=== PATIENT | female | born 1980 | race Caucasian/White ===

== ENCOUNTER 2016-06-04 09:52 | Emergency (ER) | payer MEDICAID ==
[~2016-06-04] VITALS: Ht 157.5 cm; Wt 60.0 kg
[~2016-06-04 09:52] MED LIST: DICY20TA59 PO; HYDR-906 PO; ONDA4TAB14 PO; PREN1TAB31 PO; PREN1TAB49 PO; PRENATAL
[2016-06-04 09:56] VITALS: Ht 157.5 cm; Wt 60.0 kg
[2016-06-04] MEDS ORDERED: ACETAMINOPHEN 500 MG TAB PO STA (10:24)
[2016-06-04] MEDS ORDERED: LIDOCAINE 1% (MDV) 20 ML INJ SC ONE (10:30)
[2016-06-04] MEDS ORDERED: ACET500C5 PO (11:01)
[2016-06-04] MEDS ORDERED: CEPH-443 PO (11:02)
--- NOTE | 2016-06-04 11:16 | ERD ---
ER Documentation Chief Complaint Date/Time DATE: 06/04/16 TIME: 11:03 Chief Complaint Bartholino's cyst? 12 weeks HPI 36-year-old female who is approximately 12 weeks is complaining of left labia pain and swelling. Patient stated that has been going on for a week , with pain is constant and pulsing. She has not taken any medication for pain. She went to her OB office this morning, was told to come to the ER. Denies pelvic pain or cramping. Denies vaginal bleeding. ROS All systems reviewed and are negative except as per history of present illness. Medications Home Meds Active Scripts Cephalexin* (Keflex*) 500 Mg Capsule, 500 MG PO QID for 5 Days, CAP Prov:LUIS NGUYỄN WHEEL FILLER 06/04/16 Acetaminophen* (Tylophen*) 500 Mg Capsule, 1 CAP PO Q6H Y for PAIN AND OR ELEVATED TEMP, #20 CAP Prov:LUIS NGUYỄN. WHEEL FILLER 06/04/16 Dicyclomine Hcl* (Bentyl*) 20 Mg Tablet, 20 MG PO QID, #20 TAB Prov:NEO STRICKLAND NP 01/22/16 Ondansetron (Ondansetron Odt) 4 Mg Tab.rapdis, 4 MG PO Q8 Y for NAUSEA AND/OR VOMITING, #30 TAB Prov:NEO STRICKLAND WHEEL FILLER 01/22/16 Hydrocodone/Acetaminophen ([place] 5-325 Tablet) 1 Each Tablet, 1 TAB PO Q6H Y for PAIN, #20 TAB Prov:NEO STRICKLAND WHEEL FILLER 01/22/16 Reported Medications Vits #90-Iron Fum-FA ( Formula) 1 Each Tablet, 1 EACH PO DAILY for 90 Days 03/17/13 [] No Conflict Check, QDAILY 01/04/11 Vits W-Ca,Fe,Fa(<1MG) () 1 Tab Tablet, 1 TAB PO 01/04/11 Allergies Allergies: Coded Allergies: No Known Allergy (Verified , 01/04/11) PMhx/Soc Medical and Surgical Hx: pt denies Medical Hx, pt denies Surgical Hx History of Surgery: Yes ( section) Anesthesia Reaction: No Hx Neurological Disorder: No Hx Respiratory Disorders: No Hx Cardiac Disorders: No Hx Psychiatric Problems: No Hx Miscellaneous Medical Probl: No Hx Alcohol Use: No Hx Substance Use: No Hx Tobacco Use: No Smoking Status: Never smoker Physical Exam Vitals Vital Signs Date Time Temp Pulse Resp B/P Pulse Ox O2 Delivery O2 Flow Rate FiO2 06/04/16 09:56 98.1 78 18 120/78 99 Physical Exam General impression: Well-developed, well-nourished. Alert, oriented, in no acute distress Head: Normocephalic, atraumatic. Neck: Supple, nontender. No lymphadenopathy. No nuchal rigidity. Respiration: Normal respiratory effort. Lungs clear to auscultate bilaterally. No wheezes, rales or rhonchi. Cardiovascular: Regular rate and rhythm. No murmurs or extra heart sounds. Abdomen: Abdomen normal to inspection. Nontender. No masses or organomegaly. Bowel sounds normal. : Left labia engorged, and fluctuant. Tender. External genitalia otherwise normal in appearance. Neuro: Mental status normal, speech normal. HAT BRIM CURLER grossly intact. Skin: Normal turgor. No rash or lesions. Psych: Normal mood and affect. Results 24 hrs Current Medications Medications (Trade) Dose Ordered Sig/Fiordaliza Route PRN Reason Start Time Stop Time Status Last Admin Dose Admin Acetaminophen (Tylenol Tab) 1,000 mg ONCE STAT PO 06/04/16 10:24 06/04/16 10:25 DC 06/04/16 10:34 Lidocaine (Xylocaine 1% (Mdv) 20 ml) 20 ml ONCE ONCE SC 06/04/16 10:30 06/04/16 10:31 DC 06/04/16 10:34 Procedures/[facility] Procedure note: Incision and Drainage Verbal consent obtained for incision and drainage of patient's abscess. The area was prepped with Betadine. Lidocaine 1% was infiltrated for local anesthesia. After appropriate anesthesia, incision was made using #11 blade. Copious amount of purulent discharge was drained from the abscess. The abscess was probed for loculation. Iodoform 1/4" packing tape was inserted into the abscess. The wound was then cleaned and dressed. Patient tolerated procedure well. Tylenol p.o. given to the patient in the ED for pain. Patient's labia were reduced to normal size after I&D. Keflex will be prescribed for the patient. Patient advised to return to ED in 2 days for wound check and dressing change. Patient appears well, stable for discharge and outpatient management. Medical decision making shared with patient and family. Education provided to patient and family. Patient and family expressed understanding of the plan. Medications on discharge: Tylenol, Keflex. Follow-up: Primary care provider in 2-3 days or return to ED if worse. Departure Diagnosis: Primary Impression: Bartholin's gland abscess Condition: Good Patient Instructions: Bartholin's Cyst (I And D) [facility] Usted se bolanos hecho un examen mdico de control que le indica que no est en viktor condicin que requiera tratamiento urgente en el Departamento de Emergencia. Un estudio ms profundo y el tratamiento de allison condicin pueden esperar sin ningn riesgo hasta que usted sea atendida/o en el consultorio de allison mdico o viktor cl esvin. Es responsabilidad suya arreglar viktor myra para el seguimiento del yvette. MANEJO DE CONDICIONES NO URGENTES EN EL FUTURO 1) Si usted tiene un mdico de atencin primaria: Usted debera llamar a allison mdico de atencin primaria antes de venir al departamento de emergencia. Despus de las horas de consultorio, allison doctor o allison asociado/a est disponible por telfono. El mdico o enfermero de chad en el servicio telefnico puede asesorarle por arlette medio para atender el problema, o yvette contrario se puede programar viktor myra. 2) Si usted no tiene un mdico de atencin primaria: Llame al mdico o clnica de referencia que aparece abajo domo las horas de consultorio para hacer viktor myra para que le vean. CLINICAS: [facility] [phone] [facility] 745 [phone] [facility] 316 [phone] [address] [facility] [phone] [facility] [phone] [address] [facility]. [phone] KAREN DICKSON RECREATIONAL THERAPY TECHNIC[place] [address] [facility] [address] [place] [address] OFFICE FAX , [facility] [address] [place] [address] [address] [facility] [address] [place] [address] DR KEEN, [facility] [address] [facility] [address] [address] [facility] [place] [address] [place] [address] [facility] [address] [place] [address] [address] [facility] [address] - [address] ANNE, MIRELA [address] [place] [address] [place] [address] [facility]. [address], [place] [address] [address] FREY, [place] [address] [place], [place] [id number] Additional Instructions: Regrese a estas instalaciones dentro de DOS NGUYEN para un examen de seguimiento.Regrese antes si allison condicin se empeora. LUIS NGUYỄN NP Jun 04, 2016 11:16
[2016-06-04 11:27] VITALS: BP 118/64; PULSE 78; RESP 18; TEMP 97.8
== END 2016-06-04 11:27 | disposition home or self-care (01) ==
LOC: FTE 09:52
DX: O99.89 Other specified diseases and conditions complicating pregnancy, childbirth and the puerperium (principal); N75.1 Abscess of Bartholin's gland; Z3A.12 12 weeks gestation of pregnancy
CPT/HCPCS: 56420; Z7610

== ENCOUNTER 2016-06-06 09:12 | Emergency (ER) | payer MEDICAID ==
[~2016-06-06] VITALS: Ht 160 cm; Wt 63.5 kg
[~2016-06-06 09:12] MED LIST changes: +ACET500C5 PO; +CEPH-443 PO
[2016-06-06 09:16] VITALS: Ht 160 cm; Wt 63.5 kg
--- NOTE | 2016-06-06 09:32 | ERD ---
ER Documentation Chief Complaint Date/Time DATE: 06/06/16 TIME: 09:26 Chief Complaint S/P I&D FOR RECHECK HPI This is a 36-year-old female presenting to emergency department for recheck after Bartholin gland abscess incision and drainage. Patient was here 2 days ago for incision and drainage and had packing placed. Patient has been taking antibiotic Keflex. Patient has mild pain however states this is tolerable. Patient was told to return to the ED for removal of packing and recheck. Patient is currently 12 weeks . Denies any vaginal bleeding or pelvic cramping. Patient goes to [facility] for [facility] appointments. Patient' s next appointment is in 1 week. ROS All systems reviewed and are negative except as per history of present illness. Medications Home Meds Active Scripts Cephalexin* (Keflex*) 500 Mg Capsule, 500 MG PO QID for 5 Days, CAP Prov:LUIS NGUYỄN. PLANT PATHOLOGIST 06/04/16 Acetaminophen* (Tylophen*) 500 Mg Capsule, 1 CAP PO Q6H Y for PAIN AND OR ELEVATED TEMP, #20 CAP Prov:LUIS NGUYỄN PLANT PATHOLOGIST 06/04/16 Dicyclomine Hcl* (Bentyl*) 20 Mg Tablet, 20 MG PO QID, #20 TAB Prov:NEO STRICKLAND NP 01/22/16 Ondansetron (Ondansetron Odt) 4 Mg Tab.rapdis, 4 MG PO Q8 Y for NAUSEA AND/OR VOMITING, #30 TAB Prov:NEO STRICKLAND NP 01/22/16 Hydrocodone/Acetaminophen ([place] 5-325 Tablet) 1 Each Tablet, 1 TAB PO Q6H Y for PAIN, #20 TAB Prov:NEO STRICKLAND PLANT PATHOLOGIST 01/22/16 Reported Medications Vits #90-Iron Fum-FA ( Formula) 1 Each Tablet, 1 EACH PO DAILY for 90 Days 03/17/13 [] No Conflict Check, QDAILY 01/04/11 Vits W-Ca,Fe,Fa(<1MG) () 1 Tab Tablet, 1 TAB PO 01/04/11 Allergies Allergies: Coded Allergies: No Known Allergy (Verified , 01/04/11) PMhx/Soc History of Surgery: Yes ( section) Anesthesia Reaction: No Hx Neurological Disorder: No Hx Respiratory Disorders: No Hx Cardiac Disorders: No Hx Psychiatric Problems: No Hx Miscellaneous Medical Probl: No Hx Alcohol Use: No Hx Substance Use: No Hx Tobacco Use: No Physical Exam Vitals Vital Signs Date Time Temp Pulse Resp B/P Pulse Ox O2 Delivery O2 Flow Rate FiO2 06/06/16 09:16 98.3 78 18 103/56 98 Physical Exam Const: NAD, alert Head: Atraumatic Eyes: Normal Conjunctiva ENT: Normal External Ears, Nose and Mouth. Neck: Full range of motion..~ No meningismus. Resp: Clear to auscultation bilaterally Cardio: Regular rate and rhythm, no murmurs Abd: Soft, non tender, non distended. Normal bowel sounds Skin: No petechiae or rashes Back: No midline or flank tenderness Ext: No cyanosis, or edema Neur: Awake and alert Psych: Normal Mood and Affect : packing in place to bartholin gland cyst on left side Procedures/MDM MDM: 36 year old female presents to ER for recheck after incision and drainage of Bartholin gland cyst. I/D was done 2 days ago and patient was placed on Keflex. Wound shows no evidence of infection, foreign body, neurologic injury, vascular injury, open joint or tendon laceration. Packing was removed intact. No surrounding erythema, drainage or warmth. No fevers. Patient denies any vaginal bleeding or pelvic cramping. Patient appropriate for outpatient follow up. Patient has appointment with [facility] next week. Instructed patient to follow up with [employer] for follow up. [place] translation used during this encounter. Return to ED for any high fever, chest pain, difficulty breathing, shortness breath, wheezing, vomiting, diarrhea, abdominal pain or any new or worsening symptoms. Patient verbalizes understanding. All questions answered at discharge. Low suspicion for cellulitis, deep space infection, or abscess. Departure Diagnosis: Primary Impression: Encounter for wound re-check Condition: Stable SAMY ROMAN NP Jun 06, 2016 09:32
== END 2016-06-06 10:31 | disposition home or self-care (01) ==
LOC: FTE 09:12
DX: Z48.01 Encounter for change or removal of surgical wound dressing (principal)
CPT/HCPCS: 99281

== ENCOUNTER 2016-12-02 13:30 | Inpatient (IN) | payer MEDICAID ==
[~2016-12-02] VITALS: Ht 167.6 cm; Wt 73.1 kg
[2016-12-02] MEDS ORDERED: LACTATED RINGER'S 1,000 ML IV SCH ×2 (14:30→19:49)
[2016-12-02] MEDS ORDERED: BUTORPHANOL 2 MG INJ IV ONE (14:30)
[2016-12-02 14:58] LABS: BASOPHILS % 0.3 % (0.0-2.0); HEMATOCRIT 39.1 % (37.0-47.0); HEMOGLOBIN 13.2 g/dl (12.0-16.0); LYMPHOCYTES % 20.6 % (15.0-51.0); MEAN CORPUSCULAR HEMOGLOBIN 29.5 pg (29.0-33.0); MEAN CORPUSCULAR HGB CONC 33.8 g/dl (32.0-37.0); MEAN CORPUSCULAR VOLUME 87.5 fl (82.0-101.0); MEAN PLATELET VOLUME 12.5 fl (7.4-10.4); MONOCYTE # 0.6 10^3/ul (0.3-0.9); MONOCYTES % 6.4 % (0.0-11.0); NEUTROPHILS % 72.2 % (39.0-77.0); PLATELET COUNT 122 10^3/UL (140-415); RED BLOOD COUNT 4.47 10^6/ul (4.20-5.40); RED CELL DISTRIBUTION WIDTH 13.3 % (11.5-14.5); WHITE BLOOD COUNT 9.7 10^3/ul (4.8-10.8)
--- NOTE | 2016-12-02 15:09 | RADRPT ---
PROCEDURE: US Abdomen (right upper quadrant). CLINICAL INDICATION: Right upper quadrant abdomen pain. TECHNIQUE: Multiple real-time longitudinal and transverse images of the right upper quadrant of e abdomen were acquired utilizing a curved array transducer. Images were reviewed on a high-resoluti on PACS workstation. COMPARISON: None FINDINGS: The liver is normal in size and normal in echogenicity. There is no focal hepatic lesion. Color Doppler and pulsed Doppler sonography demonstrate normal a ntegrade flow in the portal vein. Multiple gallstones are present in the gallbladder. There is no gallbladder wall thickening or fluid around the gallbladder. The bile ducts are normal with the common bile duct measuring 5.8 mm in diameter. The visualized portions of the pancreas are unremarkable with obscuration of the tail of the pancrea s. No free fluid is present. The right kidney measures 9.5 x 3.5 x 4.4 cm. There is normal echogenicity of the right kidney. T here is no perinephric fluid collection. No hydronephrosis, mass, or calculus is seen. IMPRESSION: 1. Multiple gallstones in the gallbladder. No evidence of cholecystitis. 2. Otherwise normal right upper quadrant abdomen ultrasound. RPTAT: QQ .Hai Dai MD, MD Date Time Electronically viewed and signed by .Hai Dai MD, on 12/02/2016 15:08 .R/
[2016-12-02 15:21] VITALS: Ht 167.6 cm; Wt 73.1 kg
[2016-12-02 15:22] VITALS: BP 119/78; PULSE 65; RESP 18
--- NOTE | 2016-12-02 17:07 | CONS ---
Date/Time of Note Date/Time of Note DATE: 12/02/16 TIME: 17:00 Consultation Date/Type/Reason Admit Date/Time December 02, 2016 OB triage consult This patient is 36 years old 3 para 2 0. With estimated date of confinement of December 17, 2016 which makes her 37 weeks and 6 days . She came to triage due to gallstones for evaluation and treatment of pain On examination her vital signs were fairly stable with blood pressure 119/78 pulse rate 68 respiration 18 and temperature of 96.7. Her abdomen was soft fundus was soft heart tone was normal with good variability and occasional accelerations with no decelerations. No CVA tenderness. However she had slight tenderness of the epigastric area and left upper quadrant of abdomen Laboratory Tests Test 12/02/16 14:40 White Blood Count 9.710^3/ul Red Blood Count 4.4710^6/ul Hemoglobin 13.2g/dl Hematocrit 39.1% Mean Corpuscular Volume 87.5fl Mean Corpuscular Hemoglobin 29.5pg Mean Corpuscular Hemoglobin Concent 33.8g/dl Red Cell Distribution Width 13.3% Platelet Count 52369^3/UL Mean Platelet Volume 12.5fl Neutrophils % 72.2% Lymphocytes % 20.6% Monocytes % 6.4% Eosinophils % 0.0% Basophils % 0.3% Nucleated Red Blood Cells % 0.0/100WBC Neutrophils # 7.010^3/ul Lymphocytes # 2.010^3/ul Monocytes # 0.610^3/ul Eosinophils # 0.010^3/ul Basophils # 0.010^3/ul Nucleated Red Blood Cells # 0.010^3/ul Current Medications Medications (Trade) Dose Ordered Sig/Fiordaliza Route PRN Reason Start Time Stop Time Status Last Admin Dose Admin Lactated Ringer's (Lr) 1,000 ml @ 125 mls/hr Q8H IV 12/02/16 14:30 12/02/16 14:38 125 MLS/HR Butorphanol Tartrate (Stadol) 2 mg ONCE ONCE IV 12/02/16 14:30 12/02/16 14:31 DC 12/02/16 14:41 2 MG Constitutional: No chills, No diaphoresis, No disoriented, No febrile, No improved, No no complaints, No other, No poor po, No requiring IVF, No requiring O2 Eyes: No discharge, No no complaints, No other, No pain, No redness, No visual change ENT: No bleeding, No congestion, No discharge, No dysphagia, No no complaints, No other, No pain, No sore throat Respiratory: No cough, No no complaints, No other, No pain, No pleuritic pain, No shortness of breath, No sputum, No wheezing Cardiovascular: No chest pain, No edema, No lightheadedness, No no complaints, No orthopenea, No other, No palpitations, No paroxysmal nocturnal dyspnea Gastrointestinal: other (Slight epigastric pain no rebound bowel sounds were normal the rest of the abdomen was soft no CVA tenderness), pain (.), No blood, No constipation, No decreased appetite, No diarrhea, No flatus, No nausea, No no complaints, No passing stool, No vomiting Genitourinary: No bleeding, No discharge, No dysuria, No flank pain, No hematuria, No no complaints, No other Musculoskeletal: No back pain, No bone/joint pain, No neck pain, No no complaints, No other, No restricted range of motion, No swelling Skin: No bruising, No erythema, No laceration, No no complaints, No other, No pruritis, No rash, No skin lesions Neurologic: No confusion, No dizziness, No focal-weakness, No headache, No no complaints, No other, No seizure, No syncope Endocrine: No dry skin, No no complaints, No other, No polydypsia, No polyuria , No temp intolerance Additional Comments She was given 2.5 mg of Stadol for pain . Her condition was explained to them regarding gallstone On ultrasound study the cholelithiasis was confirmed and there were no evidence of cholecystitis . Patient was informed of the result of the ultrasound study and was discharged home with instruction to rest at home and if the contractions is more or severe nausea vomiting always can come back to the triage . End of dictation Social History Smoking Status: Never smoker Exam/Review of Systems Vital Signs Vitals Vital Signs Date Time Temp Pulse Resp B/P Pulse Ox O2 Delivery O2 Flow Rate FiO2 12/02/16 15:22 98.7 65 18 119/78 Results Result Diagram: 12/02/16 1440 Results 24 hrs Laboratory Tests Test 12/02/16 14:40 White Blood Count 9.7 # Red Blood Count 4.47 Hemoglobin 13.2 Hematocrit 39.1 Mean Corpuscular Volume 87.5 Mean Corpuscular Hemoglobin 29.5 Mean Corpuscular Hemoglobin Concent 33.8 Red Cell Distribution Width 13.3 Platelet Count 122 L Mean Platelet Volume 12.5 #H Neutrophils % 72.2 Lymphocytes % 20.6 Monocytes % 6.4 Eosinophils % 0.0 Basophils % 0.3 Nucleated Red Blood Cells % 0.0 Neutrophils # 7.0 Lymphocytes # 2.0 Monocytes # 0.6 Eosinophils # 0.0 Basophils # 0.0 Nucleated Red Blood Cells # 0.0 Medications Medications Current Medications Lactated Ringer's (Lr) 1,000 ml @ 125 mls/hr Q8H IV Last administered on t 14:38; Admin Dose 125 MLS/HR; Start 12/02/16 at 14:30 JESSY KEEN MD Dec 02, 2016 17:07
[2016-12-02] MEDS ORDERED: OXYTOCIN 30 UNITS/LR 500 ML IV SCH (20:00)
[2016-12-02] MEDS ORDERED: OXYTOCIN 30 UNITS/LR 500 ML IV PRN (20:00)
[2016-12-02] MEDS ORDERED: MISOPROSTOL 200 MCG TAB PR PRN (20:00)
[2016-12-02] MEDS ORDERED: CARBOPROST 250 MCG INJ IM PRN (20:00)
[2016-12-02] MEDS ORDERED: CEFAZOLIN 2 GM/50 ML (PMX) 50 ML IV SCH (20:00)
[2016-12-02] MEDS ORDERED: METHYLERGONOVINE 0.2 MG INJ IM PRN (20:00)
[2016-12-02] MEDS ORDERED: morphine SULFATE/PF (10 MG/10 ML) INJ ONE (21:03)
[2016-12-02] MEDS ORDERED: PHENYLephrine (100 MCG/ML) 5ML SYG ONE (21:03)
[2016-12-02 21:08] LABS: INR 0.89; PT RATIO 0.9
[2016-12-02 21:25] LABS: PARTIAL THROMBOPLASTIN TIME 27.5 Sec (25.0-35.0)
[2016-12-02] MEDS ORDERED: FENTAnyl 50 MCG/ML VIAL ONE ×2 (21:26→22:15)
[2016-12-02] MEDS ORDERED: KETOROLAC 30 MG INJ IV PRN (23:00)
[2016-12-02] MEDS ORDERED: METOCLOPRAMIDE 10 MG INJ IV PRN (23:00)
[2016-12-02] MEDS ORDERED: HYDROmorphONE 1 MG/ML SYG IV PRN ×2 (23:00)
[2016-12-02] MEDS ORDERED: NALOXONE (0.4 MG/ML) INJ IV PRN (23:00)
[2016-12-02] MEDS ORDERED: DIPHENHYDRAMINE 50 MG INJ IV PRN ×2 (23:00)
[2016-12-02] MEDS ORDERED: MEPERIDINE 25 MG INJ IV PRN (23:00)
[2016-12-02] MEDS ORDERED: HYDROmorphONE (0.2 MG/ML) 10ML SYG IV PRN ×2 (23:00)
[2016-12-02] MEDS ORDERED: FENTAnyl 50 MCG/ML VIAL IV PRN ×2 (23:00)
[2016-12-02] MEDS ORDERED: ONDANSETRON 4 MG INJ IV PRN ×2 (23:00)
[2016-12-02 23:45] VITALS: BP 125/77; PULSE 61; RESP 20
[2016-12-03] VITALS (8 sets, daily range): BP systolic 101–126; BP diastolic 57–78; PULSE 60–66; RESP 18–20
--- NOTE | 2016-12-03 02:15 | HP ---
Date/Time of Note Date/Time of Note DATE: 12/03/16 TIME: 02:00 OB - History Hx of Present Free Text/Dictation 36 y.0 who had x2 previous sections who is known to have gallstones c/o pain on upper abdomen more likely on epigatrium and back pain which was alleviated by stadol,then noticed EFM revealed U,C 2- 4min which continued after IV hydration u/s abdomen showed no evidence of cholecystitis. pain level from U.C > 8/10 patient also desire to have tubal sterilization , prepare repeat section and BTL after informed consent was obtained Chief Complaint: u.c Estimated Due Date: Dec 17, 2016 : 3 Para: 2 Spontaneous : 0 Therapeutic : 0 Ultrasounds: Normal mid trimester US Obstetrical Complications: None Medical Complications: Gastrointestinal Past Family/Social History * Past Medical, Surgical, Family and Obstetric Histories reviewed from chart. Blood Type: B+ Rubella: immune RPR/VDRL: Negative GBS Status: Unknown HBsAG: Negative OB Admission Exam Vital Signs Vital Signs Vital Signs Date Time Temp Pulse Resp B/P Pulse Ox O2 Delivery O2 Flow Rate FiO2 12/03/16 00:45 98.5 60 20 126/75 100 Room Air Physical Exam HEENT: WNL Heart: Rhythm Normal Lungs: Clear, Equal Abdomen: WNL Extremities: Normal Reflexes: Normal Cervical Dilatation: Fingertip Effacement: 50% Station: -3 Membranes: Intact Amniotic Fluid: Unevaluable Heart Rate: 130's Accelerations: Accelerations Present Decelerations: No Decelerations Varibility: Moderate Contractions on Admission: < 5 Minutes Apart Intensity: Moderate Last 72 hours Lab Results CBC & BMP 12/02/16 14:40 OB Assessment/Plan Reason for admission: section, other Other Assessment: [id number] X2 previous section cholelithiasis in early labor Plan: Section, Other (bilateral tubal sterilization) SHAJI HEATH MD Dec 03, 2016 02:10
[2016-12-03] MEDS ORDERED: MISOPROSTOL 200 MCG TAB PR PRN (03:00)
[2016-12-03] MEDS ORDERED: METHYLERGONOVINE 0.2 MG INJ IM PRN (03:00)
[2016-12-03] MEDS ORDERED: LANOLIN 7 GM TUBE TOP PRN (03:00)
[2016-12-03] MEDS ORDERED: DIPHENHYDRAMINE 50 MG INJ IV PRN (03:00)
[2016-12-03] MEDS ORDERED: ONDANSETRON 4 MG INJ IV PRN (03:00)
[2016-12-03] MEDS ORDERED: CARBOPROST 250 MCG INJ IM PRN (03:00)
[2016-12-03] MEDS ORDERED: OXYTOCIN 30 UNITS/LR 500 ML IV PRN (03:00)
[2016-12-03] MEDS: KETOROLAC 30 MG INJ IV PRN ×2 (08:17→16:52)
[2016-12-03] MEDS: SENNA/DOCUSATE NA (8.6MG/50MG) TAB PO SCH ×2 (09:00→21:18)
[2016-12-03] MEDS: LACTATED RINGER'S 1,000 ML IV SCH ×2 (16:18→16:19)
--- NOTE | 2016-12-03 18:21 | OPR ---
Operative Report Planned Procedure Free Text/Dictation x2 previous c/s in laboe ,desire to have tubal sterilization Procedure date Dec 02 Procedure(s) repeat low transverse section and BTL and lysis of adhesion Performed by see signature line Assisting provider: JESSY KEEN MD Anesthesiologist: ISABELLA TRUONG Pre-procedure diagnosis 2 previous c/s in labor at 37w7d Anesthesia Type: spinal Procedure Description Under satisfactory [] anesthesia, the patient was prepped and draped and placed in a supine position, tilted to the left. Pfannenstiel incision was made, carried through the subcutaneous tissue. Bleeders brought under control with electrocautery. Fascia incised to the length of the incision. Rectus muscles from the fascia, divided midline. Upon entering the peritoneal cavity there is large portion of anterior aspect of uterus stuck to upper abdominal wall by thich fibroitic adhesive band ,which was severed with scissors and allowed to reach the . gravid uterus. . Transverse incision was made in the lower segment of the uterus. Amniotic sac ruptured.clear [] amniotic fluid noted. [] Nasal oropharyngeal suction was performed.allowed delayed cord clamping , The baby was handed to the team for immediate attention. The placenta was delivered manually intact. Uterine cavity was cleaned with dry sponge and drainage established. Uterus closed in 2 layers using #1 ch gut[] in continuous fashion. defect on ant aspect of uterine serosa was closed with 0ch in contintinous fashion rt fimbria was clamped cut doubly ligated and again Lt fimbria ws clamped and cut and doubly ligated no bleeder was noted Peritoneal cavity irrigated with warm saline. Sponge, needle and instrument count reported to be correct. piece of surgeseal was laid on uterine incisional site Abdominal peritoneum closed with 00 ch gut[] continuously. Rectus muscle approximated with 00ch gut.[]. Fascia closed with [] #1vicryl in x2 segment and subcut approximated with 00 plain gut , and skin closed with insorb.. Estimated blood loss []500cc Urine bag contained 200[]mL of urinesent to par in stable condition Post-Procedure Post-procedure diagnosis delivered normal Findings: Live Baby [male ], Apgars []8 and [],9 weight [6lb8oz], position jolly[], [] presentation []vx cord.loose around neck Estimated blood loss: other (500cc) Specimen(s): no Grafts/Implants: no Complication(s): no Pt Condition post procedure: stable Disposition: PACU Physician Certification I, the undersigned physician, hereby certify that I have discussed the procedure described in this consent form with this patient (or the patient's legal sales representative cash registers), including: * The risk and benefits of the procedure; * Any adverse reactions that may reasonably be expected to occur; * Any alternative efficacious methods of treatment which may be medically viable ; * The potential problems that may occur during recuperation; * Potential for blood transfusion and associated risks/benefits; and * Any research or economic interest I may have regarding this treatment. I further certify that the patient/legally responsible person was encouraged to ask question and that all questions were answered. SHAJI HEATH MD Dec 03, 2016 18:19
[2016-12-03] MEDS ORDERED: OXYCODONE/ACETAMINOPHEN (5/325) TAB PO PRN (23:00)
[2016-12-03] MEDS ORDERED: ZOLPIDEM 5 MG TAB PO PRN (23:00)
[2016-12-03] MEDS: OXYCODONE/ACETAMINOPHEN (5/325) TAB PO PRN (23:01)
[2016-12-04] MEDS: IBUPROFEN 600 MG TAB PO SCH ×4 (00:39→17:52)
[2016-12-04 08:00] VITALS: BP 98/56; PULSE 60; RESP 18
[2016-12-04 08:47] LABS: BASOPHILS % 0.3 % (0.0-2.0); EOSINOPHILS % 0.2 % (0.0-7.0); HEMATOCRIT 32.1 % (37.0-47.0); HEMOGLOBIN 10.9 g/dl (12.0-16.0); LYMPHOCYTES % 18.4 % (15.0-51.0); MEAN CORPUSCULAR HEMOGLOBIN 30.1 pg (29.0-33.0); MEAN CORPUSCULAR VOLUME 88.7 fl (82.0-101.0); MEAN PLATELET VOLUME 11.5 fl (7.4-10.4); MONOCYTE # 0.6 10^3/ul (0.3-0.9); MONOCYTES % 5.8 % (0.0-11.0); NEUTROPHIL # 8.3 10^3/ul (1.6-7.5); NEUTROPHILS % 74.8 % (39.0-77.0); PLATELET COUNT 102 10^3/UL (140-415); RED BLOOD COUNT 3.62 10^6/ul (4.20-5.40); RED CELL DISTRIBUTION WIDTH 13.8 % (11.5-14.5); WHITE BLOOD COUNT 11.1 10^3/ul (4.8-10.8)
[2016-12-04] MEDS: SENNA/DOCUSATE NA (8.6MG/50MG) TAB PO SCH ×2 (11:12→20:06)
--- NOTE | 2016-12-04 13:06 | PN ---
Date/Time of Note Date/Time of Note DATE: 12/04/16 TIME: 13:05 OB Subjective Subjective Subjective Post day2 VSs Afebrile Abdomen soft Incision healing well Good bowel sounds No bowel movement Enema recommended Ambulation encouraged JERALD ANN MD Dec 04, 2016 13:06
[2016-12-04] MEDS ORDERED: NA PHOSPHATE/BIPHOS 133 ML ENEMA PR ONE (13:30)
[2016-12-04] MEDS: OXYCODONE/ACETAMINOPHEN (5/325) TAB PO PRN ×2 (14:45→20:06)
[2016-12-04 16:00] VITALS: BP 106/74; PULSE 62; RESP 16
[2016-12-04 20:15] VITALS: BP 120/64; PULSE 66; RESP 19
[2016-12-05] MEDS: IBUPROFEN 600 MG TAB PO SCH ×4 (00:40→17:36)
[2016-12-05 04:15] VITALS: BP 96/60; PULSE 60; RESP 19
[2016-12-05 09:06] VITALS: BP 92/52; PULSE 56; RESP 18
[2016-12-05] MEDS: SENNA/DOCUSATE NA (8.6MG/50MG) TAB PO SCH (09:54)
[2016-12-05] MEDS: OXYCODONE/ACETAMINOPHEN (5/325) TAB PO PRN (09:59)
[2016-12-05] MEDS ORDERED: NA PHOSPHATE/BIPHOS 133 ML ENEMA PR SCH (13:00)
--- NOTE | 2016-12-05 13:32 | PD.PPDC ---
BASKET MACHINE OPERATOR Discharge Instruction Condition Patient Condition: Good Diet Diet: Resume Regular Diet Activity/Restrictions Activity: Normal Activity May Shower Restrictions: No Exercising No Lifting No Driving No Sexual Activity Nothing in the Vagina No Airway Heights No Tampons, douche Wound/Drain Care Instructions Wound/Drain Care Instructions: Remove Steri Strips in 1 week Follow-up Follow-up with Physician: 1, Week/Weeks Provider Information: Post instructions given amended to make appointment with the office in 1 week Return to clinic for UNSTACKER Instructions: Fever greater than 101 Chills Worsening abdominal pain Excessive Vaginal Bleeding More than 2 pads per hour Unable to tolerate diet OB Instructions: Breast Tenderness Depression Blurried Vision Headache Surgical Instructions: Incisional Drainage Incisional Redness JERALD ANN MD Dec 05, 2016 13:32
--- NOTE | 2016-12-05 13:39 | DS ---
Date/Time of Note Date/Time of Note DATE: 12/05/16 TIME: 13:36 Discharge Summary Admission/Discharge Info Admit Date/Time Dec 02, 2016 at 19:45 Discharge Date/Time December 05, 2016 at 1300 Discharge Diagnosis Post date 3 Patient Condition: Good Procedures Repeat Hx of Present Illness Term history of previous Hospital Course Satisfactory progress uneventful Home Meds Active Scripts Cephalexin* (Keflex*) 500 Mg Capsule, 500 MG PO QID for 5 Days, CAP Prov:LUIS NGUYỄN GRINDER SET UP OPERATOR JIG 06/04/16 Acetaminophen* (Tylophen*) 500 Mg Capsule, 1 CAP PO Q6H Y for PAIN AND OR ELEVATED TEMP, #20 CAP Prov:LUIS NGUYỄN GRINDER SET UP OPERATOR JIG 06/04/16 Dicyclomine Hcl* (Bentyl*) 20 Mg Tablet, 20 MG PO QID, #20 TAB Prov:NEO STRICKLAND NP 01/22/16 Ondansetron (Ondansetron Odt) 4 Mg Tab.rapdis, 4 MG PO Q8 Y for NAUSEA AND/OR VOMITING, #30 TAB Prov:NEO STRICKLAND NP 01/22/16 Hydrocodone/Acetaminophen ([place] 5-325 Tablet) 1 Each Tablet, 1 TAB PO Q6H Y for PAIN, #20 TAB Prov:NEO STRICKLAND GRINDER SET UP OPERATOR JIG 01/22/16 Reported Medications Vits #90-Iron Fum-FA ( Formula) 1 Each Tablet, 1 EACH PO DAILY for 90 Days 03/17/13 [] No Conflict Check, QDAILY 01/04/11 Vits W-Ca,Fe,Fa(<1MG) () 1 Tab Tablet, 1 TAB PO 01/04/11 Follow-up Plan Post instructions given, recommended patient to be seen at the clinic in 1 week Primary Care Provider Not On Staff Doctor Time spent on discharge: < 30 minutes JERALD ANN MD Dec 05, 2016 13:39
[2016-12-06] MEDS ORDERED: DIPHTH/TET/ACEL PERTUSS (ADULT) 0.5 ML VIAL IM* ONE (09:00)
--- NOTE | 2016-12-06 14:29 | CONS ---
Date/Time of Note Date/Time of Note DATE: 12/06/16 TIME: 14:28 Consultation Date/Type/Reason Admit Date/Time Dec 02, 2016 at 19:45 Initial Consult Date 12/03/16 Type of Consultation: Anesthesiology Reason for Consultation follow up 24 HR Interval Summary Free Text/Dictation Pt seen and examined at bedside on 12/03/16 is POD#1 s/p repeat c/s. Pt received Duramorph spinal for post op pain relief and pain is currently controlled adequately. No N/V/D/MARIE/Numbness in extremities. Will follow. Constitutional: improved, no complaints Exam/Review of Systems Vital Signs Vitals Vital Signs Date Time Temp Pulse Resp B/P Pulse Ox O2 Delivery O2 Flow Rate FiO2 12/05/16 09:06 98.1 56 18 92/52 Room Air 12/03/16 21:17 96 21 Results Result Diagram: 12/04/16 0821 ISABELLA TRUONG Dec 06, 2016 14:29
== END 2016-12-05 18:49 | disposition home or self-care (01) | DRG 766 ==
LOC: L-D 13:30 → OBT 13:30 → L-D 19:45 → OBT 19:45 → L-D 20:59 → PP1 12-03 01:41
PROVIDERS: ADMIT Obstetrics & Gynecology; ATTEND Obstetrics & Gynecology
PROC: 10D00Z1 Extraction of Products of Conception, Low, Open Approach (ICD-10-PCS; principal; 2016-12-03)
PROC: 0UB70ZZ Excision of Bilateral Fallopian Tubes, Open Approach (ICD-10-PCS; 2016-12-03)
DX: O34.211 Maternal care for low transverse scar from previous cesarean delivery (principal); Z30.2 Encounter for sterilization; Z37.0 Single live birth; Z3A.37 37 weeks gestation of pregnancy
CPT/HCPCS: 36415; 76705; 85025; 85610; 85730; 86592; 86850; 86900; 86901; 88302; 94760; 96360; 96361; 99464; G0463; J0595; J0690; J1885; J2274; J2370; J2590; J3010; J7120